=== PATIENT | male | born 1975 | race Caucasian/White ===

== ENCOUNTER 2018-12-28 09:04 | Emergency (ER) | payer OTHER ==
[2018-12-28 09:10] VITALS: BP 135/76
--- NOTE | 2018-12-28 09:33 | ER Document Report ---
ED Extremity Problem, Lower - General Chief Complaint: Foot Pain Stated Complaint: TOENAIL ISSUE Time Seen by Provider: 12/28/18 09:21 TRAVEL OUTSIDE OF THE [place] IN LAST 30 DAYS: No - HPI Notes: Patient is a 43-year-old male that presents to the emergency department for chief complaint of left toenail problem. Patient states over the last 2 months he has had worsening ingrown left big toenail. He states intermittently it becomes red and swollen. He states the redness was a lot worse a few weeks ago but he has been using Epsom salt soaks and it has been having intermittent drainage of pus. He denies any trauma to his foot. He states he has a history of toenail fungus and believes that the toenails have been growing back in different. He denies any fever, chills, chest pain, shortness of breath, abdominal pain, numbness and weakness. Past Medical History: Hyperlipidemia Past Surgical History: Left wrist ganglion cyst removal Social History: Daily tobacco. Denies drugs and alcohol Family History: Reviewed and noncontributory for presenting illness Allergies: Reviewed, see documented allergy list. REVIEW OF SYSTEMS: CONSTITUTIONAL : No fever No chills No diaphoresis No recent illness EENT: No vision changes No congestion No sore throat CARDIOVASCULAR: No chest pain No palpitations RESPIRATORY: No shortness of breath No cough No difficulty breathing GASTROINTESTINAL: No abdominal pain No nausea No vomiting No diarrhea GENITOURINARY: No dysuria No hematuria No difficulty urinating MUSCULOSKELETAL: No back pain No leg pain No arm pain Left great toe pain SKIN: rashes No lesions LYMPHATIC: No swollen, enlarged glands. NEUROLOGICAL: No lightheadedness No headache No weakness No paresthesias PSYCHIATRIC: No anxiety No depression PHYSICAL EXAMINATION: Vital signs reviewed, nursing noted reviewed. GENERAL: Well-appearing, well-nourished and in no acute distress. HEAD: Atraumatic, normocephalic. EYES: Eyes appear normal, extraocular movements intact, sclera anicteric, conjunctiva are normal. ENT: nares patent, oropharynx clear without exudates. Moist mucous membranes. NECK: Normal range of motion, supple without lymphadenopathy LUNGS: Breath sounds clear to auscultation bilaterally and equal. No wheezes rales or rhonchi. HEART: Regular rate and rhythm without murmurs ABDOMEN: Soft, nontender, normoactive bowel sounds. No rebound, guarding, or rigidity. No masses appreciated. EXTREMITIES: Ingrown left great toenail. Nontender, good range of motion, no pitting or edema. NEUROLOGICAL: No focal neurological deficits. Moves all extremities spontaneously Motor and sensory grossly intact on exam. PSYCH: Normal mood, normal affect. SKIN: Warm, Dry, normal turgor, Very mild erythema to media aspect of left first toenail with no fluctuance or purulent drainage - Related Data Allergies/Adverse Reactions: shrimp Allergy (Verified 12/28/18 09:07) Past Medical History - Social History Smoking Status: Current Every Day Smoker Chew tobacco use (# tins/day): No Frequency of alcohol use: None Drug Abuse: None Family History: Reviewed & Not Pertinent Patient has suicidal ideation: No Patient has homicidal ideation: No Renal/ Medical History: Denies: Hx Peritoneal Dialysis Physical Exam - Vital signs Vitals: Temp Pulse Resp BP Pulse Ox 98.4 F 89 16 135/76 H 99 12/28/18 09:08 12/28/18 09:08 12/28/18 09:08 12/28/18 09:08 12/28/18 09:08 Course - Re-evaluation Re-evalutation: 12/28/18 09:32 Vitals reviewed. Nursing notes reviewed. Patient has ingrown toenail on his left first digit with very mild erythema to the medial aspect. There is no pocket of pus or fluctuance requiring incision and drainage. Patient has been soaking his toe at home and has had purulence out at home. He will be started on Keflex. He was referred to podiatry for further management and likely toenail removal. - Vital Signs Vital signs: Temp Pulse Resp BP Pulse Ox 98.4 F 89 16 135/76 H 99 12/28/18 09:08 12/28/18 09:08 12/28/18 09:08 12/28/18 09:08 12/28/18 09:08 Discharge - Discharge Clinical Impression: Paronychia, Ingrown toenail of left foot Condition: Stable Disposition: HOME, SELF-CARE Instructions: Paronychia (OM) Additional Instructions: Please return to the emergency department if you have any worsening, or concern of your symptoms. Please return to the emergency department if you develop chest pain, difficulty breathing, severe abdominal pain, or ongoing vomiting. Please follow-up with your primary care physician in 2-3 days and any other recommended physicians. If prescribed, take all medications as directed. If you have any questions or concerns do not hesitate to return the emergency department for evaluation. [facility] 1 week Prescriptions: Cephalexin Monohydrate [Keflex 500 mg Capsule] 500 mg PO Q6H 5 Days capsule Referrals: CAROLYN MENSAH DPM [ACTIVE STAFF] - Follow up as needed
== END 2018-12-28 09:35 | disposition home or self-care (01) ==
LOC: ER 09:04
DX: L60.0 Ingrowing nail (principal); L03.032 Cellulitis of left toe; M79.675 Pain in left toe(s); F17.200 Nicotine dependence, unspecified, uncomplicated
CPT/HCPCS: 99283

== ENCOUNTER 2020-09-12 11:24 | Emergency (ER) | payer OTHER ==
[2020-09-12] MEDS ORDERED: LORAZEPAM 1 MG TABLET PO ONE (12:12)
--- NOTE | 2020-09-12 12:15 | ER Document Report ---
ED Cardiac - General Chief Complaint: Palpitations Stated Complaint: PALPITATIONS Time Seen by Provider: 09/12/20 11:43 [facility] [[facility] - Follow up as needed Notes: CHIEF COMPLAINT: Palpitations for 2 months HPI: 45-year-old male presenting for palpitations sensation daily for 2 months. May last for minutes or hours at a time. Occasionally feels like it makes him short of breath he is questioning whether or not he may have anxiety issues. [facility] normally has not been seen for this issue. Reports a history of atrial fibrillation many years ago but is not on any kind of anticoagulation. States he had another episode this morning which was more prolonged than normal had slight chest pressure with that so decided to come in for evaluation ROS: See HPI - all other systems were reviewed and are otherwise negative Constitutional: no fever Eyes: no drainage, no blurred vision ENT: no runny nose, no sore throat Cardiovascular: + chest pain Resp: + SOB, no cough GI: no vomiting, no diarrhea, no abdominal pain : no dysuria Integumentary: no rash Allergy: no hives Musculoskeletal: no extremity pain or swelling Neurological: no numbness/tingling, no weakness MEDICATIONS: I agree with the patient medications as charted by the RN. ALLERGIES: I agree with the allergies as charted by the RN. PAST MEDICAL HISTORY/PAST SURGICAL HISTORY: Reviewed and agree as charted by RN. SOCIAL HISTORY: Reviewed and agree as charted by RN. FAMILY HISTORY: No significant familial comorbid conditions directly related to patient complaint EXAM: Reviewed vital signs as charted by RN. CONSTITUTIONAL: Alert and oriented and responds appropriately to questions. Well-appearing; well-nourished HEAD: Normocephalic; atraumatic EYES: PERRL; Conjunctivae clear, sclerae non-icteric ENT: normal nose; no rhinorrhea; moist mucous membranes; pharynx without lesions noted, no uvula edema or deviation, no tonsillar hypertrophy, phonation normal NECK: Supple without meningismus; non-tender; no cervical lymphadenopathy, no masses CARD: RRR; no murmurs, no clicks, no rubs, no gallops; symmetric distal pulses RESP: Normal chest excursion without splinting or tachypnea; breath sounds clear and equal bilaterally; no wheezes, no rhonchi, no rales, pulse oximetry 99% on room air not hypoxic ABD/GI: Normal bowel sounds; non-distended; soft, non-tender, no rebound, no guarding; no palpable organomegaly or masses. BACK: The back appears normal and is non-tender to palpation, there is no CVA tenderness EXT: Normal ROM in all joints; non-tender to palpation; no cyanosis, no effusions, no edema SKIN: Normal color for age and race; warm; dry; good turgor; no acute lesions noted NEURO: Moves all extremities equally; Motor and sensory function intact PSYCH: The patient's mood and manner are appropriate. Grooming and personal hygiene are appropriate. MDM: EKG sinus rhythm with a ventricular rate of 70 TX 144 QT 384 QTC 415. No other visible ectopy. Normal EKG. Interpreted by emergency department physicians. 45-year-old male who is otherwise very healthy presenting for evaluation of palpitations or anxiety sensation over the last 2 months, almost a daily event. States that deep breathing at times will seem to make it much better. Prolonged episode today, will obtain baseline screening cardiac labs believe 1 set is sufficient given length of time of symptoms. Will add TSH, chest x-ray. Patient is not dyspneic when speaking TRAVEL OUTSIDE OF THE [place] IN LAST 30 DAYS: No - Related Data Allergies/Adverse Reactions: shrimp Allergy (Verified 09/12/20 11:40) Home Medications: acyclovir. simvastatin. zyrtec Past Medical History - Social History Smoking Status: Former Smoker Chew tobacco use (# tins/day): No Frequency of alcohol use: None Drug Abuse: None Family History: Reviewed & Not Pertinent Patient has homicidal ideation: No - Past Medical History Cardiac Medical History: Reports: Hx Hypercholesterolemia Renal/ Medical History: Denies: Hx Peritoneal Dialysis Physical Exam - Vital signs Vitals: Temp Pulse Resp BP Pulse Ox 98.4 F 77 16 123/85 98 09/12/20 11:35 09/12/20 11:35 09/12/20 11:35 09/12/20 11:35 09/12/20 11:35 Course - Re-evaluation Re-evalutation: 09/12/20 14:02 Patient's lab work does not show any acute abnormalities. Patient will be discharged to follow-up outpatient with cardiology for stress test. Have low suspicion for ACS at this time. Patient initial heart score was 1. Patient may very well have anxiety I spoke with Zohaib from the psychiatric team and she has provided me a list of outpatient places for the patient to follow this up. He is not suicidal or homicidal. I will place the patient on a short course of antianxiety medication as well. [facility] will also be in contact with them to schedule follow-up - Vital Signs Vital signs: Temp Pulse Resp BP Pulse Ox 98.4 F 77 16 123/85 100 09/12/20 11:35 09/12/20 11:35 09/12/20 11:35 09/12/20 11:35 09/12/20 11:55 - Laboratory Result Diagrams: 09/12/20 11:50 09/12/20 11:50 Laboratory results interpreted by me: 09/12/20 11:50 Carbon Dioxide 31 H Discharge - Discharge Clinical Impression: Palpitations Condition: Stable Disposition: HOME, SELF-CARE Additional Instructions: Follow-up with cardiology for further evaluation and treatment you likely need an outpatient stress test as discussed. Call their office to obtain appointment. You may also choose [facility]. You have been given a list of providers that we will see you for psychiatric services if you choose not to go through [facility]. Take the Xanax as prescribed do not drive if taking this medication as it can make you sleepy. Prescriptions: Alprazolam [Xanax 0.25 mg Tablet] 0.25 mg PO Q8HP PRN #20 tablet PRN Reason: Referrals: [facility] [Primary [facility]] - Follow up as needed STELLA FREEMAN MD [ACTIVE STAFF] - Follow up as needed
--- NOTE | 2020-09-12 12:47 | RADIOLOGY REPORT (SQ) ---
EXAM DESCRIPTION: CHEST SINGLE VIEW IMAGES COMPLETED DATE/TIME: 09/12/2020 12:17 pm REASON FOR STUDY: palpitations COMPARISON: None. EXAM PARAMETERS: NUMBER OF VIEWS: One view. TECHNIQUE: An AP view of the chest was obtained. RADIATION DOSE: NA LIMITATIONS: None. FINDINGS: LUNGS AND PLEURA: No consolidation, pleural effusion or pneumothorax. MEDIASTINUM AND HILAR STRUCTURES: No mediastinal or hilar contour abnormality. HEART AND VASCULAR STRUCTURES: The cardiac silhouette and pulmonary vasculature are within normal mark its. BONES: No acute findings. HARDWARE: None in the chest. OTHER: No other finding. IMPRESSION: No acute cardiopulmonary process. TECHNICAL DOCUMENTATION: JOB ID: [id number] 2010 [employer]- All Rights Reserved Reading location - IP/workstation name: [email or web address]
[2020-09-12 12:54] LABS: ABSOLUTE EOSINOPHILS # (AUTO) 0.1 10^3/uL (0.0-0.6); ABSOLUTE LYMPHOCYTES (AUTO) 1.9 10^3/uL (0.5-4.7); ABSOLUTE MONOCYTES (AUTO) 0.5 10^3/uL (0.1-1.4); BASOPHILS % (AUTO) 0.5 % (0-2); HEMATOCRIT 41.9 % (37.9-51.0); HEMOGLOBIN 14.4 g/dL (13.5-17.0); LYMPHOCYTES % (AUTO) 29.2 % (13-45); MEAN CORPUSCULAR HEMOGLOBIN 30.4 pg (27.0-33.4); MEAN CORPUSCULAR HGB CONC 34.2 g/dL (32.0-36.0); MEAN CORPUSCULAR VOLUME 89 fl (80-97); PLATELET COUNT 228 10^3/uL (150-450); RED BLOOD COUNT 4.73 10^6/uL (4.35-5.55); RED CELL DISTRIBUTION WIDTH 13.6 % (11.5-14.0); SEGMENTED NEUTROPHILS % (AUTO) 61.3 % (42-78); TOTAL CELLS COUNTED % (AUTO) 100 %; WHITE BLOOD COUNT 6.5 10^3/uL (4.0-10.5)
[2020-09-12 13:07] LABS: ALBUMIN 4.6 g/dL (3.5-5.0); ALKALINE PHOSPHATASE 62 U/L (38-126); ANION GAP 6 (5-19); ASPARTATE AMINO TRANSFERASE 33 U/L (17-59); BILIRUBIN,DIRECT 0.1 mg/dL (0.0-0.4); BILIRUBIN,TOTAL 0.5 mg/dL (0.2-1.3); BLOOD UREA NITROGEN 13 mg/dL (7-20); CALCIUM 10.2 mg/dL (8.4-10.2); CARBON DIOXIDE 31 mmol/L (22-30); CHLORIDE 102 mmol/L (98-107); GLUCOSE 99 mg/dL (75-110); POTASSIUM 4.5 mmol/L (3.6-5.0); TOTAL PROTEIN 7.5 g/dL (6.3-8.2)
--- NOTE | 2020-09-12 13:38 | EKG REPORT ---
SEVERITY:- NORMAL ECG - SINUS RHYTHM : Confirmed by: Dominguez Todd MD 12-Sep-2020 13:37:23
[2020-09-12 14:37] VITALS: BP 118/76
== END 2020-09-12 14:37 | disposition home or self-care (01) ==
LOC: ER 11:24
DX: R00.2 Palpitations (principal); Z79.899 Other long term (current) drug therapy; Z91.013 Allergy to seafood; Z87.891 Personal history of nicotine dependence
CPT/HCPCS: 36415; 71045; 80053; 84443; 84484; 85025; 93005; 93010; 99285